=== PATIENT | female | born 1985 | race Caucasian/White ===

== ENCOUNTER → 2024-12-01 07:47 | Outpatient (REF) | payer MEDICARE, MEDICAID, SELFPAY | LOC: RAD 07:47 | PROVIDERS: ATTENDING PHYSICIAN Nurse Practitioner Family; FAMILY PHYSICIAN Student in an Organized Health Care Education/Training Program | DX: R19.00 Intra-abdominal and pelvic swelling, mass and lump, unspecified site (principal) | CPT/HCPCS: 74177; Q9967 ==